=== PATIENT | female | born 1990 | race Caucasian/White ===

== ENCOUNTER 2018-05-15 21:20 | Inpatient (IN) | END 2018-05-18 15:35 | disposition home or self-care (01) | DRG 765 ==

== ENCOUNTER 2019-05-27 21:33 | Emergency (ER) | payer OTHER ==
[~2019-05-27] VITALS: Ht 157.5 cm; Wt 83.8 kg
[~2019-05-27 21:33] MED LIST: IBUP-1542 PO
[2019-05-27 21:46] VITALS: Ht 157.5 cm; Wt 83.8 kg
[2019-05-28 00:38] VITALS: BP 124/65; PULSE 88; RESP 17
== END 2019-05-28 00:38 | disposition home or self-care (01) ==
LOC: FTE 21:33
DX: R10.32 Left lower quadrant pain (principal); R10.2 Pelvic and perineal pain
CPT/HCPCS: 76830; 76856; 81001; 81025; Z7502